=== PATIENT | female | born 1980 | race African-American/Black ===

== ENCOUNTER → 2017-04-12 | Day surgery (SDC) | payer OTHER ==
[~2017-04-12] MED LIST: AUGMENTIN 875875 MG PO; IBUPROFEN800 MG PO; LEXAPRO20 M1 PO; PERCOCET 325 MG1 TA2 PO
--- NOTE | 2017-04-12 09:11 | Operative Report ---
Operative/Inv Procedure Report Surgery Date: 04/12/17 Name of Procedure: LAPROSCOPY CHROMOPERTUBATION Pre-Operative Diagnosis: FIBROIDS fibroid uterus Post-Operative Diagnosis: Same Estimated Blood Loss: less than 50ml Surgeon/Head Of Merchandise Buying: CORI BRAN MD Anesthesia: general endotracheal tube Operative/Procedure Note Note: Patient was taken the operating room placed on position after adequate induction general anesthesia via endotracheal tube patient was placed in dorsolithotomy position the vagina was prepped fashion bladder was catheterized examination under anesthesia was performed at this point CO2 tie was placed on the anterior lip of the cervix at this point patient tolerated that well contracted was placed which was intact to the period surgeon regowned and gloved at the level leg is the incision was extended to allow for 10 mm trocar the trocar was placed and she was admitted and placed reattached she is a laparoscope was placed. On the fluid was pushed through the tubes on both tubes were patent opening the ovaries appeared normal the uterus is enlarged but there is no discrete fibroids otherwise normal anatomy by odalys suture was removed from the abdomen as well as the instruments under direct visualization the incision at the umbilicus was oversewn using serial skin was reapproximated 30 Marcaine was injected on the skin at the end the case: Rowland was removed patient was returned position she was extubated in the OR waiting for anesthesia and transferred recovery room awake alert counts correct thank you
== END ==
LOC: STS 02:44
DX: N85.2 Hypertrophy of uterus (principal); Z68.35 Body mass index [BMI] 35.0-35.9, adult
CPT/HCPCS: 36415; 81025; C9399; J0131; J0694; J1100; J2250; J2405